=== PATIENT | female | born 2000 | race Caucasian/White ===

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

== ENCOUNTER 2020-07-03 09:06 | Emergency (ER) | payer BC, SELFPAY ==
[2020-07-03 09:13] VITALS: BP 155/102; PULSE 90; RESP 20; TEMP 36.7; O2SAT 100; BMI 40.7
--- NOTE | 2020-07-03 09:32 | ED_ITS ---
HPI - General Adult General: Chief complaint: General Medical Stated complaint: trouble breathing, facial and hand numbness Time Seen by Provider: 07/03/20 09:11 History of Present Illness: HPI narrative: Patient is a 19-year-old female comes to the ED with shortness of breath and numbness to right side of face and right arm. Symptoms started this morning when she woke up. She states she has had a similar episode in the past. She also states that she has had a history of having a panic attack once before as well. Denies any facial swelling, throat or tongue swelling, nausea/vomiting, abdominal pain, chest pain, bladder or bowel symptoms. Patient reports having some stress with work and school and states that somebody she knew about a month ago. Associated symptoms: Reports dyspnea; Deny chest pain, headache(s), nausea, rash, palpitations or vomiting Review of Systems Const: Denies: fever(s), chills or fatigue Eyes: Denies: change in vision or eye discomfort ENMT: Denies: throat pain, odynophagia, nasal discharge or nasal congestion Card: Denies: chest pain, palpitations, edema, swelling of feet/ankles, dyspnea on exertion or orthopnea Resp: Reports: dyspnea; Denies: productive cough or non-productive cough GI: Denies: abdominal pain, nausea, vomiting, diarrhea, constipation or hematochezia : Denies: flank pain, dysuria or hematuria Musc: Denies: neck pain, back pain or extremity swelling Skin/Breast: Denies: rash or new lesions Neuro: Reports: numbness in extremities (right arm); Denies: headache(s) or weakness in extremities Psych: Reports: anxiety PFS ED PFSH: Social History Smoking and tobacco status: never smoked Alcohol intake: never Female Reproductive History: Date of last menstrual period: 07/03/20 Physical Exam Const: COMMON NORMALS: patient oriented x3 and alert GENERAL APPEARANCE: cooperative, comfortable and anxious NUTRITIONAL APPEARANCE: overweight HENMT: COMMON NORMALS: normocephalic HEAD & SCALP: normocephalic MOUTH: Normal oral and palatal mucosa present THROAT: posterior oropharynx normal and uvula midline Eye: COMMON NORMALS: Equal, round and reactive pupils present and EOMs intact bilaterally PUPIL: Yes Equal, round and reactive pupils present Neck/C-Spine: COMMON NORMALS: supple GENERAL: Yes normal visual inspection Resp: COMMON NORMALS: normal respiratory effort, No retractions, No use of accessory muscles and clear to auscultation bilaterally EFFORT & INSPECTION: Yes tachypneic (20 resp per min) AUSCULTATION: clear to auscultation bilaterally Cardio: COMMON NORMALS: regular rate, regular rhythm, S1 normal heart sound present, S2 normal heart sound present, No gallops present (Cardio), No clicks present (Cardio), No murmurs present (Cardio) and Peripheral pulses 2+ throughout RATE: regular rate RHYTHM: regular rhythm HEART SOUNDS: S1 normal heart sound present and S2 normal heart sound present PERIPHERAL PULSES: Peripheral pulses 2+ throughout GI: COMMON NORMALS: Normal to inspection, nondistended, normoactive bowel sounds present, Soft to palpation, non-tender and no masses PALPATION: Yes Soft to palpation : COMMON NORMALS: Yes no CVA tenderness BLADDER/KIDNEY EXAM: Yes no CVA tenderness Back/Pelvis: COMMON NORMALS: no CVA tenderness Extremity: COMMON NORMALS: normal to inspection and no pedal edema Neuro: COMMON NORMALS: patient oriented x3, CN's II-XII intact bilaterally, moves all extremities, no focal motor deficits and no sensory deficits noted SENSORIUM/ORIENTATION: Yes alert COORDINATION/BALANCE: [id number] test normal MOTOR EXAM: 5/5 motor strength present throughout COORDINATION: [id number] test normal Skin: GENERAL SKIN EXAM: dry skin Course Reevaluation(s): Reevaluation #1: I wanted to check on patient after she was given a dose of the Vistaril. Patient says her symptoms are improving and she seemed to be lying comfortably on the bed in no acute respiratory distress. Respirations normal. Vital Signs: Vital signs: Vital Signs Temperature 98.1 F 07/03/20 09:13 Pulse Rate 88 07/03/20 11:29 Respiratory Rate 18 07/03/20 11:29 Blood Pressure 142/88 07/03/20 11:29 Pulse Oximetry 98 07/03/20 11:29 MDM - General Adult MDM Narrative: Medical decision making narrative: Patient is a 19-year-old female comes to the ED with acute onset of shortness of breath right upper extremity numbness. Patient did report having some stress with work and school and someone she knew about a month ago. Neuro exam completely normal. Lungs were clear to auscultation bilaterally but patient was tachypneic. CBC and CMP were unremarkable. hCG was negative and troponin negative. EKG normal sinus rhythm and chest x-ray was negative. CT of head sh owed no acute findings. Patient was given a dose of Vistaril and her symptoms improved. Patient diagnosed with acute anxiety. She was discharged and told to follow-up with PCP about anxiety management in 7 to 10 days. Patient understood and agreed with plan. Return to ED precautions given. Lab Data: Attestation: I reviewed the patient's lab results. Labs: Lab Results 07/03/20 07/03/20 07/03/20 Range/Units 10:08 10:08 10:08 WBC 8.4 (4.5-13.0) 10^3/ uL RBC 4.43 (4.1-5.3) 10^6/u L Hgb 13.5 (11.5-15.3) g/dL Hct 41.4 (37.0-47.0) % MCV 93.5 (81-99) fL MCH 30.5 (28.0-34.0) pg MCHC 32.6 (30.0-36.0) g/dL RDW 11.9 L (12.1-15.1) % Plt Count 348 (130-400) 10^3/c mm MPV 9.1 (7.4-10.4) fL Neut % (Auto) 64.9 % Lymph % (Auto) 24.0 % Gonzales % (Auto) 8.4 % Eos % (Auto) 1.9 % Baso % (Auto) 0.4 % Neut # (Auto) 5.43 (1.8-8.0) 10^3/u L Lymph # (Auto) 2.0 (1.5-6.5) 10^3/u L Gonzales # (Auto) 0.7 (0.2-0.9) 10^3/u L Eos # (Auto) 0.2 (0.0-0.8) 10^3/u L Baso # (Auto) 0.0 (0.0-0.1) 10^3/u L Nucleated RBC % (a uto) 0 % Nucleated RBCs # 0.0 /100WBC Sodium 137 (136-145) mmol/L Potassium 3.9 (3.5-5.1) mmol/L Chloride 101 (98-107) mmol/L Carbon Dioxide 21 L (22-29) mmol/L Anion Gap 18.9 (5-19) BUN 8 (6-20) mg/dL Creatinine 0.6 (0.5-0.9) mg/dL GFR Calculation 128.8 (90-130) mL/min Glucose 114 (65-115) mg/dL Calculated Osmolal ity 283 L (285-295) mOsm/k g Calcium 9.5 (8.5-10.5) mg/dL Total Bilirubin 0.3 (0.15-1.2) mg/dL AST 38 H (0-32) U/L ALT 49 H (0-33) U/L Alkaline Phosphata se 61 (35-105) IU/L Troponin T Gen 5 n g/L 6 (0-10) ng/L Total Protein 7.2 (6.6-8.7) g/dL Albumin 4.3 (3.5-5.2) g/dL Globulin 2.9 (1.3-4.6) g/dL HCG, Qual (Negative) 07/03/20 Range/Units 10:08 WBC (4.5-13.0) 10^3/ uL RBC (4.1-5.3) 10^6/u L Hgb (11.5-15.3) g/dL Hct (37.0-47.0) % MCV (81-99) fL MCH (28.0-34.0) pg MCHC (30.0-36.0) g/dL RDW (12.1-15.1) % Plt Count (130-400) 10^3/c mm MPV (7.4-10.4) fL Neut % (Auto) % Lymph % (Auto) % Gonzales % (Auto) % Eos % (Auto) % Baso % (Auto) % Neut # (Auto) (1.8-8.0) 10^3/u L Lymph # (Auto) (1.5-6.5) 10^3/u L Gonzales # (Auto) (0.2-0.9) 10^3/u L Eos # (Auto) (0.0-0.8) 10^3/u L Baso # (Auto) (0.0-0.1) 10^3/u L Nucleated RBC % (a uto) % Nucleated RBCs # /100WBC Sodium (136-145) mmol/L Potassium (3.5-5.1) mmol/L Chloride (98-107) mmol/L Carbon Dioxide (22-29) mmol/L Anion Gap (5-19) BUN (6-20) mg/dL Creatinine (0.5-0.9) mg/dL GFR Calculation (90-130) mL/min Glucose (65-115) mg/dL Calculated Osmolal ity (285-295) mOsm/k g Calcium (8.5-10.5) mg/dL Total Bilirubin (0.15-1.2) mg/dL AST (0-32) U/L ALT (0-33) U/L Alkaline Phosphata se (35-105) IU/L Troponin T Gen 5 n g/L (0-10) ng/L Total Protein (6.6-8.7) g/dL Albumin (3.5-5.2) g/dL Globulin (1.3-4.6) g/dL HCG, Qual Negative (Negative) Imaging Data^: CXR: Attestation: I personally reviewed and interpreted this imaging study as follows: Radiologist's impression: [address] [address] XRay Report Signed Patient: Alisson Malagon Unit #: [id number] : 2000 Age/Sex: 19 / F ADM Date: 07/03/20 Loc: ER Room/Bed: Attending Dr: Ordering Provider/Ordering MD: Navin Alcantar Date of Service: 07/03/20 Procedure(s): XR chest 1V portable [id number] Accession Number(s): [id number] Report Number: [id number] WS: [id number] Portable AP upright chest, 07/03/2020 Clinical Data: sob Comparison: None. Findings: No nodules, masses or effusions are seen. The heart is normal. The pulmonary vascularity is not increased. No pneumonia or pneumothorax is seen. XR/XR chest 1V portable [id number] Impression: Negative chest. Dictated By: Cathi Posada MD Signed By: Cathi Posada MD Signed Date/Time: 07/03/20 1053 DD/ 1052 CT Head: Attestation: I personally reviewed and interpreted this imaging study as follows: Radiologist's impression: [facility] [address] [place] [address] CT Scan Report Signed Patient: Alisson Malagon Unit #: [id number] : 2000 Age/Sex: 19 / F ADM Date: 07/03/20 Loc: ER Room/Bed: Attending Dr: Ordering Provider/Ordering MD: Navin Alcantar Date of Service: 07/03/20 Procedure(s): CT head wo con* [id number] Accession Number(s): [id number] Report Number: [id number] WS: [id number] CT HEAD TECHNIQUE: Noncontrast CT of the head obtained from the skullbase to the vertex. CLINICAL INFORMATION: numbness to right side COMPARISON: None. DLP: 784.[address] scans at [facility] use at least one of these dose optimization techniques: automated exposure control; mA and/or kV adjustment per patient size (includes targeted exams where dose is matched to clinical indication); or iterative reconstruction. FINDINGS: No evidence of intracranial hemorrhage or mass effect. Ventricular system and basal cisterns are patent. No extra-axial fluid collections. No evidence of mass or mass effect. Normal rehman-white differentiation. Incidental slightly low-lying cerebellar tonsils. Normal fourth ventricle. Paranasal sinuses and mastoid air cells are well aerated. .Normal visualized soft tissues. CT/CT head wo con* [id number] IMPRESSION: 1. No evidence of intracranial hemorrhage or mass effect. 2. Normal rehman-white differentiation. 3. Incidental slightly low-lying cerebellar tonsils. Normal fourth ventricle. 4. No acute intracranial findings. Dictated By: Donaldo Garza MD Signed By: Donaldo Garza MD Signed Date/Time: 07/03/20 1046 DD/ 1038 EKG Data^: EKG 1: Attestation: I personally reviewed and interpreted this EKG as follows: EKG interpretation date: 07/03/20 Interpretation: Normal sinus rhythm with marked sinus arrhythmia. 67 bpm, no ST segment elevation or depression seen. Computer generated interpretation: Chest X-Ray 07/03/20 09:54 Impression: Negative chest. Head CT 07/03/20 09:54 IMPRESSION: 1. No evidence of intracranial hemorrhage or mass effect. 2. Normal rehman-white differentiation. 3. Incidental slightly low-lying cerebellar tonsils. Normal fourth ventricle. 4. No acute intracranial findings. Discharge Plan Discharge Patient Disposition: Home Clinical Impression: Acute anxiety Condition: Stable Prescriptions: No Action No Known Home Medications RF: 0 Discharge Orders: Discharge Order (Routine); Ordered 07/03/20 Ordered By: Navin Alcantar Referrals: [facility], [Primary Care Provider] - Discharge Diet: Regular Discharge Activity: Increase activity as tolerated Patient Instructions: Anxiety (ED) Activity Restrictions/Additional Instructions: Follow-up with medical provider as directed in 7-10 days. I am sending you home with 1 Vistaril tab to use as needed for any acute anxiety symptoms. Talk with your PCP about your anxiety and medical management for that. return to the ER or your medical provider if condition worsens. Please read and understand discharge instructions. If any questions, please ask. Discharge Date/Time: 07/03/20 11:30 Coding Level of Care Code ED Transport Engineer for Luke Fwabdirashid Exam Comprehensive
[2020-07-03 09:40] VITALS: BP 136/97; PULSE 87; RESP 20; O2SAT 99
--- NOTE | 2020-07-03 09:54 | CT_ITS ---
WS: [id number] CT HEAD TECHNIQUE: Noncontrast CT of the head obtained from the skullbase to the vertex. CLINICAL INFORMATION: numbness to right side COMPARISON: None. DLP: 784.[address] scans at [facility] use at least one of these dose optimization techniques: automat ed exposure control; mA and/or kV adjustment per patient size (includes targeted exams where dose is matched to clinical indication); or iterative reconstruction. FINDINGS: No evidence of intracranial hemorrhage or mass effect. Ventricular system and basal cisterns are rendon nt. No extra-axial fluid collections. No evidence of mass or mass effect. Normal rehman-white different iation. Incidental slightly low-lying cerebellar tonsils. Normal fourth ventricle. Paranasal sinuses and mastoid air cells are well aerated. .Normal visualized soft tissues. CT/CT head wo con* [id number] IMPRESSION: 1. No evidence of intracranial hemorrhage or mass effect. 2. Normal rehman-white differentiation. 3. Incidental slightly low-lying cerebellar tonsils. Normal fourth ventricle. 4. No acute intracranial findings.
--- NOTE | 2020-07-03 09:54 | XR_ITS ---
WS: [id number] Portable AP upright chest, 07/03/2020 Clinical Data: sob Comparison: None. Findings: No nodules, masses or effusions are seen. The heart is normal. The pulmonary vascularity is not increased. No pneumonia or pneumothorax is seen. XR/XR chest 1V portable [id number] Impression: Negative chest.
--- NOTE | 2020-07-03 09:54 | ECG_ITS ---
[facility] Test Date: 2020-07-03 Pat Name: Alisson Malagon Department: Room: Gender: Female Comb Tender: : 2000 Requested By: Navin Alcantar Order Number: [id number] Noonan MD: Ruth Ann Pratt M.D. Measurements Intervals [place] Rate: 67 P: 16 [place]: 160 QRS: 18 QRSD: 98 T: 5 QT: 385 QTc: 408 Interpretive Statements SINUS RHYTHM WITH MARKED SINUS ARRHYTHMIA No previous ECG available for comparison Electronically Signed On 07-03-2020 20:16:17 WINDOW CLEANER by Ruth Ann Pratt M.D. [id number]
[2020-07-03 10:18] LABS: Basophils % 0.4 %; Eosinophils # 0.2 10^3/uL (0.0-0.8); Eosinophils % 1.9 %; Hematocrit 41.4 % (37.0-47.0); Hemoglobin 13.5 g/dL (11.5-15.3); Mean Corpuscular HGB Conc 32.6 g/dL (30.0-36.0); Mean Corpuscular Hemoglobin 30.5 pg (28.0-34.0); Mean Corpuscular Volume 93.5 fL (81-99); Mean Platelet Volume 9.1 fL (7.4-10.4); Monocytes # 0.7 10^3/uL (0.2-0.9); Monocytes % 8.4 %; Neutrophils # 5.43 10^3/uL (1.8-8.0); Neutrophils % 64.9 %; Nucleated Red Blood Cells % 0 %; Platelet Count 348 10^3/cmm (130-400); Red Blood Count 4.43 10^6/uL (4.1-5.3); Red Cell Distribution Width 11.9 % (12.1-15.1); White Blood Count 8.4 10^3/uL (4.5-13.0)
[2020-07-03 10:36] LABS: HCG, Serum Qual Negative (Negative)
[2020-07-03 10:41] LABS: Alanine Aminotransferase 49 U/L (0-33); Albumin Level 4.3 g/dL (3.5-5.2); Alkaline Phosphatase 61 IU/L (35-105); Anion Gap 18.9 (5-19); Aspartate Amino Transferase 38 U/L (0-32); Blood Urea Nitrogen 8 mg/dL (6-20); Calcium 9.5 mg/dL (8.5-10.5); Carbon Dioxide 21 mmol/L (22-29); Chloride 101 mmol/L (98-107); Globulin 2.9 g/dL (1.3-4.6); Glomerular Filtration Rate 128.8 mL/min (90-130); Glucose 114 mg/dL (65-115); Osmolality Calculated 283 mOsm/kg (285-295); Potassium 3.9 mmol/L (3.5-5.1); Sodium 137 mmol/L (136-145); Total Bilirubin 0.3 mg/dL (0.15-1.2); Total Protein 7.2 g/dL (6.6-8.7)
[2020-07-03 10:42] LABS: Troponin T (5th) Once 6 ng/L (0-10)
[2020-07-03] MEDS: hyDROXYzine 25 mg Capsule 50 MG PO (10:42)
[2020-07-03 11:29] VITALS: BP 142/88; PULSE 88; RESP 18; O2SAT 98
--- NOTE | 2020-07-03 11:29 | PC.NURSE ---
Patient given Hydroxyzine 50 mg for home use.
== END 2020-07-03 11:30 | disposition home or self-care (01) ==
PROVIDERS: Emergency Provider Physician Assistant
DX: F41.9 Anxiety disorder, unspecified (principal)
CPT/HCPCS: 12345; 70450; 71045; 80053; 84484; 84703; 85025; 93005; 99281; 99283

== ENCOUNTER → 2020-07-22 16:26 | Outpatient (BNVA) | payer BC, SELFPAY | PROVIDERS: Visit Provider Emergency Medicine | DX: Z20.828 Contact with and (suspected) exposure to other viral communicable diseases (principal) | CPT/HCPCS: 87635 ==

== ENCOUNTER 2022-08-06 17:16 | Outpatient (CLI) | payer BC, SELFPAY ==
[2022-08-06 18:21] LABS: Thyroid Stimulating Hormone 1.55 uIU/mL (0.27-4.20)
[2022-08-06 20:23] LABS: Estmated Average Glucose 117; Hemoglobin A1C 5.7 % (4.0-6.0)
[2022-08-08 16:54] LABS: Insulin ( Reference Lab Test) 10.9 uIU/mL
== END 2022-08-06 17:17 | disposition home or self-care (01) ==
PROVIDERS: PCP Family Medicine; Visit Provider Obstetrics & Gynecology
DX: N93.9 Abnormal uterine and vaginal bleeding, unspecified (principal)
CPT/HCPCS: 83036; 83525; 84443; 88175

== ENCOUNTER → 2022-09-05 12:23 | Outpatient (BNVA) | payer BC, SELFPAY | PROVIDERS: PCP Family Medicine; Visit Provider Obstetrics & Gynecology | DX: N93.9 Abnormal uterine and vaginal bleeding, unspecified (principal) | CPT/HCPCS: 76830 ==